=== PATIENT | male | born 1955 | race Caucasian/White ===

== ENCOUNTER 2017-07-22 07:44 | Emergency (ER) | payer BC ==
[2017-07-22 07:49] VITALS: BP 142/76; PULSE 61; TEMP 98.5; BMI 22.8
--- NOTE | 2017-07-22 08:15 | PDOC ---
History of Present Illness - General Chief Complaint: Injury Stated Complaint: FALL Time Seen by Provider: 07/22/17 07:58 - History of Present Illness Initial Comments: 07/22/17 08:14 62 M with h/o CAD, HTN, HLD presents to ER with mechanical fall. Pt states that he was walking when he tripped over his shoelace. He fell forwards onto his face. He was able to brace his fall with his left arm but hit his face against the ground. Denies LOC. Denies HUMPHRIES/N/V. Denies neck pain. Denies any loosening of his teeth. Denies pain with biting. Denies weakness/numbness/tingling in his arms or legs. Denies back pain. Pt is on effiant and baby aspirin. Past History - Past Medical History Allergies/Adverse Reactions: Allergies Allergy/AdvReac Type Severity Reaction Status Date / Time No Known Allergies Allergy Verified 07/22/17 07:45 Home Medications: Ambulatory Orders Aspirin 81 mg PO DAILY 10/16/13 Atorvastatin Ca [Lipitor] 80 mg PO HS 10/16/13 Esomeprazole Mag Trihydrate [Nexium] 40 mg PO DAILY 10/16/13 Folic Acid - 1 mg PO DAILY 10/16/13 Isosorbide Mononitrate [Isosorbide Mononitrate ER] 30 mg PO DAILY 10/16/13 Metoprolol Tartrate [Lopressor -] 50 mg PO DAILY 10/16/13 Ranolazine [Ranexa] 1,000 mg PO BID 10/16/13 Prasugrel HCl [Effient] 10 mg PO DAILY #0 10/18/14 Ramipril [Altace] 2.5 mg PO DAILY 01/13/16 Anemia: No Asthma: No Cancer: No Cardiac Disorders: Yes (CORONARY ATHEROSCLEROSIS,HEART ATTACK 2011) CVA: No COPD: No CHF: No Dementia: No Diabetes: No GI Disorders: Yes (ESOPHAGITIS,GERD,COLON POLYPS) Disorders: No HTN: No Hypercholesterolemia: Yes Liver Disease: Yes (FATTY LIVER) Seizures: No Thyroid Disease: No - Surgical History Abdominal Surgery: No Cardiac Surgery: Yes (CABG; CARDIAC STENTS-2012X5) Lung Surgery: No Neurologic Surgery: No Orthopedic Surgery: No - Suicide/Smoking/Psychosocial Hx Smoking History: Former smoker Have you smoked in the past 12 months: No Information on smoking cessation initiated: No Hx Alcohol Use: Yes Drug/Substance Use Hx: No Substance Use Type: Alcohol Hx Substance Use Treatment: No Review of Systems - Review of Systems Comments:: 07/22/17 08:44 "GENERAL/CONSTITUTIONAL: No fever or chills. No weakness. HEAD, EYES, EARS, NOSE AND THROAT: +upper lip lac, No change in vision. No ear pain or discharge. No sore throat. CARDIOVASCULAR: No chest pain or shortness of breath. RESPIRATORY: No cough, wheezing, or hemoptysis. GASTROINTESTINAL: No nausea, vomiting, diarrhea or constipation. GENITOURINARY: No dysuria, frequency, or change in urination. MUSCULOSKELETAL: No joint or muscle swelling or pain. No neck or back pain. SKIN: No rash NEUROLOGIC: No headache, vertigo, loss of consciousness, or change in strength/ sensation. ENDOCRINE: No increased thirst. No abnormal weight change. HEMATOLOGIC/LYMPHATIC: No anemia, easy bleeding, or history of blood clots. ALLERGIC/IMMUNOLOGIC: No hives or skin allergy. " *Physical Exam - Vital Signs Last Vital Signs Temp Pulse Resp BP Pulse Ox 98.5 F 61 18 142/76 100 07/22/17 07:45 07/22/17 07:45 07/22/17 07:45 07/22/17 07:45 07/22/17 07:45 - Physical Exam Comments: 07/22/17 08:46 "GENERAL: Awake, alert, and fully oriented, in no acute distress HEAD: No goodrich's sign, no hemotympanum, no raccoon eyes, no signs of depressed or basilar skull fx EYES: PERRLA, EOMI, sclera anicteric, conjunctiva clear ENT: Bite even, no chipped teeth, no TMJ tenderness, Auricles normal inspection , hearing grossly normal, nares patent, oropharynx clear without exudates. Moist mucosa NECK: Nontender, no stepoffs, Normal ROM, supple, no lymphadenopathy, JVD, or masses LUNGS: Breath sounds equal, clear to auscultation bilaterally. No wheezes, and no crackles HEART: Regular rate and rhythm, normal S1 and S2, no murmurs, rubs or gallops ABDOMEN: Soft, nontender, normoactive bowel sounds. No guarding, no rebound. No masses EXTREMITIES: superficial abrasions to L forearm, Normal range of motion, no edema. No clubbing or cyanosis. No cords, erythema, or tenderness NEUROLOGICAL: Cranial nerves II through XII intact. 5/5 strength and sensation in all extremities, Normal speech, normal gait SKIN: 1cm stellate lac to upper lip, not [id number] Procedures - Laceration/Wound Repair Upper Lip Wound Length: to 2.5 cm Wound Explored: clean Wound's Depth, Shape: superficial, stellate Irrigated w/ Saline: Yes Anesthesia: 1% Lidocaine Amount of Anesthetic (ccs): 2 Wound Debrided: minimal Wound Repaired With: Sutures Suture Size/Type: 5:0, nylon Number of Sutures: 3 Layer Closure: No Medical Decision Making - Medical Decision Making 07/22/17 08:50 62 M with mechanical fall, now with upper lip laceration. Will obtain CT head given anticoagulation. - CT head, facial bones - Tdap 07/22/17 09:42 Wound irrigated, repaired with 5.0 nylon. Pt counseled on scar prevention. *DC/Admit/Observation/Transfer Diagnosis at time of Disposition: Lip laceration - Discharge Dispostion Disposition: HOME Condition at time of disposition: Stable - Patient Instructions Printed Discharge Instructions: DI for Laceration Repair Additional Instructions: Keep your wound clean and dry for 24 hours. After that, you may rinse gently with soap and water. Apply bacitracin ointment twice daily to prevent infection. Keep the area covered when you go outside to prevent scarring. Your sutures must come out in 5 days. Return to the ER or go to your primary care doctor to have them removed. If you experience worsening bleeding, swelling, pain, redness, or any other concerning symptoms, return to the ER immediately. - Attestations Physician Attestion: 07/22/17 09:45 I, Dr. Braden Can MD, attest that this document has been prepared under my direction and personally reviewed by me in its entirety. I further attest, that it accurately reflects all work, treatment, procedures and medical decision -making performed by me.
[2017-07-22] MEDS ORDERED: DIPHTH,PERTUSS(ACELL),TET VAC 0.5 ML VIAL IM ONE (08:17)
[2017-07-22] MEDS ORDERED: DIPHTH,PERTUSS(ACELL),TET 0.5 ML DISP.SYRIN IM ONE (08:54)
[2017-07-22] MEDS ORDERED: LIDOCAINE HCL 1%, 10 MG/ML (50 mL VIAL) SQ ONE (09:16)
== END 2017-07-22 09:51 | disposition home or self-care (01) ==
LOC: FER 07:44
PROC: 3E0234Z Introduction of Serum, Toxoid and Vaccine into Muscle, Percutaneous Approach (ICD-10-PCS; principal; 2017-07-22)
PROC: 0CQ0XZZ Repair Upper Lip, External Approach (ICD-10-PCS; 2017-07-22)
DX: S01.511A Laceration without foreign body of lip, initial encounter (principal); W01.0XXA Fall on same level from slipping, tripping and stumbling without subsequent striking against object, initial encounter; Y93.89 Activity, other specified; Y92.9 Unspecified place or not applicable; I25.2 Old myocardial infarction; K21.9 Gastro-esophageal reflux disease without esophagitis; E78.00 Pure hypercholesterolemia, unspecified; K76.0 Fatty (change of) liver, not elsewhere classified; Z95.5 Presence of coronary angioplasty implant and graft
CPT/HCPCS: 70450-TC; 70486-TC; 90715; 99281-25

== ENCOUNTER 2017-07-27 14:25 | Emergency (ER) | payer BC ==
[2017-07-27 14:35] VITALS: BP 121/76; PULSE 58; TEMP 97.4; BMI 22.8
--- NOTE | 2017-07-27 14:48 | PDOC ---
History of Present Illness - General Chief Complaint: Suture/Staple Removal(Here) Stated Complaint: SUTURE REMOVAL FACE Time Seen by Provider: 07/27/17 14:42 - History of Present Illness Initial Comments: 07/27/17 14:43 62-year-old male presents for suture removal from mustache area. Sutures are placed 5 days ago without complication. Patient has been feeling well denies any fevers or chills. Denies any other symptoms. Past History - Past Medical History Allergies/Adverse Reactions: Allergies Allergy/AdvReac Type Severity Reaction Status Date / Time No Known Allergies Allergy Verified 07/27/17 14:27 Home Medications: Ambulatory Orders Aspirin 81 mg PO DAILY 10/16/13 Atorvastatin Ca [Lipitor] 80 mg PO HS 10/16/13 Esomeprazole Mag Trihydrate [Nexium] 40 mg PO DAILY 10/16/13 Folic Acid - 1 mg PO DAILY 10/16/13 Isosorbide Mononitrate [Isosorbide Mononitrate ER] 30 mg PO DAILY 10/16/13 Metoprolol Tartrate [Lopressor -] 50 mg PO DAILY 10/16/13 Ranolazine [Ranexa] 1,000 mg PO BID 10/16/13 Prasugrel HCl [Effient] 10 mg PO DAILY #0 10/18/14 Ramipril [Altace] 2.5 mg PO DAILY 01/13/16 Anemia: No Asthma: No Cancer: No Cardiac Disorders: Yes (CORONARY ATHEROSCLEROSIS,HEART ATTACK 2011) CVA: No COPD: No CHF: No Dementia: No Diabetes: No GI Disorders: Yes (ESOPHAGITIS,GERD,COLON POLYPS) Disorders: No HTN: No Hypercholesterolemia: Yes Liver Disease: Yes (FATTY LIVER) Seizures: No Thyroid Disease: No - Surgical History Abdominal Surgery: No Cardiac Surgery: Yes (CABG; CARDIAC STENTS-) Lung Surgery: No Neurologic Surgery: No Orthopedic Surgery: No - Suicide/Smoking/Psychosocial Hx Smoking History: Former smoker Have you smoked in the past 12 months: No Information on smoking cessation initiated: No Hx Alcohol Use: Yes Drug/Substance Use Hx: No Substance Use Type: Alcohol Hx Substance Use Treatment: No Review of Systems - Review of Systems Comments:: 07/27/17 14:45 GENERAL/CONSTITUTIONAL: No fever or chills. No weakness. HEAD, EYES, EARS, NOSE AND THROAT: No change in vision. No ear pain or discharge. No sore throat. GASTROINTESTINAL: No nausea, vomiting, diarrhea or constipation. GENITOURINARY: No dysuria, frequency, or change in urination. CARDIOVASCULAR: No chest pain or shortness of breath. RESPIRATORY: No cough, wheezing, or hemoptysis. MUSCULOSKELETAL: No joint or muscle swelling or pain. No neck or back pain. SKIN: No rash. +sutures NEUROLOGIC: No headache, vertigo, loss of consciousness, or change in strength/ sensation. ENDOCRINE: No increased thirst. No abnormal weight change. HEMATOLOGIC/LYMPHATIC: No anemia, easy bleeding, or history of blood clots. ALLERGIC/IMMUNOLOGIC: No hives or skin allergy. *Physical Exam - Vital Signs Last Vital Signs Temp Pulse Resp BP Pulse Ox 97.4 F L 58 L 18 121/76 98 07/27/17 14:25 07/27/17 14:25 07/27/17 14:25 07/27/17 14:25 07/27/17 14:25 - Physical Exam Comments: 07/27/17 14:45 GENERAL: Awake, alert, and fully oriented, in no acute distress HEAD: No signs of trauma. 3 nylon sutures visualized above upper lip with some scab growing over part of the sutures. EYES: PERRLA, EOMI, sclera anicteric, conjunctiva clear LUNGS: Breath sounds equal, clear to auscultation bilaterally. No wheezes, and no crackles HEART: Regular rate and rhythm, normal S1 and S2, no murmurs, rubs or gallops ABDOMEN: Soft, nontender, normoactive bowel sounds. No guarding, no rebound. No masses EXTREMITIES: Normal range of motion, no edema. No clubbing or cyanosis. No cords, erythema, or tenderness NEUROLOGICAL: Normal speech, cranial nerves intact SKIN: Warm, Dry, normal turgor, no rashes or lesions noted. Medical Decision Making - Medical Decision Making 07/27/17 14:46 62-year-old male presents for Suture removal. Patient is well-appearing. Skin had over grown the lac a bit, so used 1cc of 1% lido to get to the sutures. Sutures were then removed without complication. Lac is hemostatic, does not appear erythematous and no purulence. Patient is stable for discharge home. I discussed the physical exam findings, ancillary test results and final diagnoses with the patient. I answered all of the patient's questions. The patient was satisfied with the care received and felt comfortable with the discharge plan and treatment plan. The patient will call their primary care physician within 24 hours to arrange follow-up and will return to the Emergency Department with any new, persistent or worsening symptoms. *DC/Admit/Observation/Transfer Diagnosis at time of Disposition: Visit for suture removal - Discharge Dispostion Condition at time of disposition: Stable Admit: No - Referrals Referrals: Joe Randall MD [Primary Care Provider] - - Patient Instructions Printed Discharge Instructions: DI for Suture Removal Additional Instructions: Continue to apply antibiotic ointment twice a day. Please see your primary care doctor within 1 week. Return to the emergency department immediately for any new or concerning symptoms or if your symptoms get worse. Thank you for coming to the Emergency Department today for your care. It was a pleasure to see you today. Please note that your evaluation is INCOMPLETE until you follow-up with your doctor. - Attestations Physician Attestion: 07/27/17 14:48 I, Dr. Bonnie Hall MD, attest that this document has been prepared under my direction and personally reviewed by me in its entirety. I further attest, that it accurately reflects all work, treatment, procedures and medical decision -making performed by me.
== END 2017-07-27 15:36 | disposition home or self-care (01) ==
LOC: FER 14:25
DX: Z48.02 Encounter for removal of sutures (principal)
CPT/HCPCS: 99282-25